=== PATIENT | female | born 1985 | race Two or more races ===

== ENCOUNTER 2017-10-06 02:54 | Emergency (ER) | payer OTHER ==
[~2017-10-06] VITALS: Ht 160 cm; Wt 138.3 kg
[2017-10-06] MEDS ORDERED: HYDROXYZINE HCL25 MG PO (04:35)
== END 2017-10-06 04:42 | disposition home or self-care (01) ==
LOC: ER 02:54
DX: R00.2 Palpitations (principal); F06.4 Anxiety disorder due to known physiological condition